=== PATIENT | male | born 1955 | race Caucasian/White ===

== ENCOUNTER 2019-11-02 01:54 | Observation (INO) | payer MEDICARE, MEDICAID ==
[~2019-11-02] VITALS: Ht 190.5 cm; Wt 195.4 kg
--- NOTE | 2019-11-02 02:40 | NUR ---
GRACIELA : [phone]
--- NOTE | 2019-11-02 02:50 | NUR ---
PT REPORTS THAT HE DIDN'T DRINK HIS KAYEXALATE. MADE AWARE. MD OKAYED PT TO HAVE WATER. EKG AND LABS ORDERED.
--- NOTE | 2019-11-02 03:25 | NUR ---
pt placed on quality assurance monitor body.
[2019-11-02 03:32] LABS: BASOPHILS # (AUTO) 0.1 X10'3 (0-0.2); BASOPHILS % (AUTO) 0.4 % (0-1); EOSINOPHILS # (AUTO) 0.2 X10'3 (0-0.9); EOSINOPHILS % (AUTO) 1.4 % (0-6); HEMATOCRIT 45.4 % (42.0-52.0); HEMOGLOBIN 14.6 g/dl (14.0-17.9); LYMPHOCYTES # (AUTO) 0.6 X10'3 (1.1-4.8); MEAN CORPUSCULAR HGB CONC 32.1 g/dL (33.0-36.5); MEAN CORPUSCULAR VOLUME 96.3 FL (78-98); MEAN PLATELET VOLUME 8.5 FL (7.4-10.4); MONOCYTES # (AUTO) 1.6 X10'3 (0-0.9); MONOCYTES % (AUTO) 10.1 % (2-12); NEUTROPHILS # (AUTO) 13.4 X10'3 (1.8-7.7); NEUTROPHILS % (AUTO) 84.1 % (42-75); PLATELET COUNT 252 X10'3 (140-440); RED BLOOD COUNT 4.72 X10'6 (4.70-6.10); RED CELL DISTRIBUTION WIDTH 15.7 % (11.5-14.5); WHITE BLOOD COUNT 15.9 X10'3 (4.5-11.0)
[2019-11-02] MEDS ORDERED: CARV-50 PO (03:34)
[2019-11-02] MEDS ORDERED: GABA600T13 PO (03:34)
[2019-11-02] MEDS ORDERED: MULT-1085 PO (03:34)
[2019-11-02] MEDS ORDERED: ASPI-1265 PO (03:34)
[2019-11-02] MEDS ORDERED: SPIR25TA5 PO (03:34)
[2019-11-02] MEDS ORDERED: FURO-150 PO (03:34)
[2019-11-02] MEDS ORDERED: IBUP-1984 PO (03:34)
[2019-11-02] MEDS ORDERED: LISI40TA4 PO (03:34)
[2019-11-02] MEDS ORDERED: GLYC1TAB23 PO ×2 (03:34)
[2019-11-02] MEDS ORDERED: ALBU8HFA PO (03:34)
[2019-11-02 03:35] LABS: ALBUMIN 3.2 G/DL (3.4-5.0); ANION GAP 1 (8-16); BLOOD UREA NITROGEN 32 MG/DL (7-18); BUN/CREATININE RATIO 22.9 (5.4-32.0); CHLORIDE 101 MMOL/L (99-107); GLUCOSE 147 MG/DL (70-104); POTASSIUM 5.1 MMOL/L (3.5-5.1); SODIUM 138 MMOL/L (135-145); TOTAL CARBON DIOXIDE 35.6 MMOL/L (24-32); eGFR 51 ML/MIN
[2019-11-02] MEDS ORDERED: dextrose ORAL solution 15 GM/59 ML bottle PO PRN ×2 (03:55)
[2019-11-02] MEDS ORDERED: ondansetron/PF 4mg/2ml inj IV PRN (03:55)
[2019-11-02] MEDS ORDERED: magnesium hydroxide 30ml (MOM) UD suspension PO PRN (03:55)
[2019-11-02] MEDS ORDERED: potassium CL 10mEq/100ml bag 100 ML IV PRN ×2 (03:55)
[2019-11-02] MEDS ORDERED: magnesium 2GM in 50ml NS 50 ML IV PRN (03:55)
[2019-11-02] MEDS ORDERED: magnesium Cl slow-release 64mg tablet PO PRN (03:55)
[2019-11-02] MEDS ORDERED: magnesium 4gm in 100ml NS 100 ML IV PRN (03:55)
[2019-11-02] MEDS ORDERED: glucagon, human recombinant 1mg kit SUBCUT PRN (03:55)
[2019-11-02] MEDS ORDERED: potassium Cl 20 mEq SR tablet PO PRN ×2 (03:55)
[2019-11-02] MEDS ORDERED: dextrose 50%-water 50ml dispensing syringe IV PRN ×2 (03:55)
[2019-11-02] MEDS ORDERED: MESSAGE TO PHARMACY PO ONE (03:55)
[2019-11-02] MEDS ORDERED: mag hydrox/Alum hydrox/simeth 30ml oral suspension PO PRN (03:55)
[2019-11-02] MEDS ORDERED: ATOR40TA PO (03:57)
[2019-11-02] MEDS ORDERED: DILT-88 PO (03:57)
[2019-11-02] MEDS ORDERED: LANTUS SQ (03:57)
[2019-11-02] MEDS ORDERED: albuterol 2.5 MG/3 ML nebule NEB PRN (04:30)
--- NOTE | 2019-11-02 04:50 | NUR ---
Patient in room ED 4. I have received report from Kassi CHINCHILLA and had the opportunity to ask questions and assume patient care.
--- NOTE | 2019-11-02 05:04 | NUR ---
pt to floor
[2019-11-02 05:05] VITALS: BP 132/77
[2019-11-02 07:01] LABS: D-DIMER 24.75 MG/L FEU (0-0.50)
--- NOTE | 2019-11-02 07:02 | NUR ---
Patient in room [facility]TH[facility] 4013. I have received report from RENÉE Del Valle and had the opportunity to ask questions and assume patient care.
[2019-11-02] MEDS: furosemide 40mg tablet PO SCH (07:56)
[2019-11-02] MEDS: spironolactone 25 MG tablet PO SCH (07:56)
[2019-11-02] MEDS: atorvastatin 20mg tablet PO SCH (07:56)
[2019-11-02] MEDS: diltiazem CD 120mg capsule (once-daily) PO SCH (07:56)
[2019-11-02] MEDS: carVEDilol 12.5mg tablet PO SCH ×2 (07:56→21:14)
[2019-11-02] MEDS: aspirin 81mg tab.chew PO SCH (07:56)
[2019-11-02] MEDS: gabapentin 300mg capsule PO SCH ×3 (07:56→21:14)
[2019-11-02] MEDS: lisinopril 10 MG tablet PO SCH (07:57)
[2019-11-02] MEDS: K and/or MAG REPLACEMENT MC SCH ×2 (08:00→20:00)
[2019-11-02] MEDS ORDERED: normal saline 1000ml 1,000 ML IV ONE (09:40)
[2019-11-02 10:00] VITALS: BP 144/72
[2019-11-02] MEDS ORDERED: iohexol 350MG/ML 100ml bottle IV ONE (10:48)
[2019-11-02] MEDS: normal saline 1000ml 1,000 ML IV SCH (11:51)
[2019-11-02] MEDS ORDERED: LISI-600 PO (12:05)
[2019-11-02] MEDS ORDERED: FURO40TA4 PO (12:05)
[2019-11-02] MEDS ORDERED: POTA10TA36 PO (12:05)
--- NOTE | 2019-11-02 15:23 | NUR ---
DM Consult: A1C 7.3 hx T2DM and afib refusing anti-coagulant per EMR. Written DM ed w/ RD contact information placed in pt chart. Addendum: 11/02/19 at [address] Amended: Links added.
[2019-11-02 18:00] VITALS: BP 154/96
--- NOTE | 2019-11-02 18:30 | NUR ---
Patient in room ORTHO 4013. I have received report from RENÉE CARUSO and had the opportunity to ask questions and assume patient care.
--- NOTE | 2019-11-02 18:35 | NUR ---
Problems reprioritized. Patient report given, questions answered & plan of care reviewed with RENÉE Boss.
[2019-11-02] MEDS: insulin glargine (Lantus) pen - multi-dose SQ SCH (21:21)
[2019-11-02 22:00] VITALS: BP 152/86
[2019-11-03] MEDS: normal saline 1000ml 1,000 ML IV SCH (05:40)
[2019-11-03 06:00] VITALS: BP 152/92
[2019-11-03 06:15] LABS: BASOPHILS # (AUTO) 0.1 X10'3 (0-0.2); BASOPHILS % (AUTO) 0.5 % (0-1); EOSINOPHILS # (AUTO) 0.2 X10'3 (0-0.9); EOSINOPHILS % (AUTO) 1.5 % (0-6); HEMATOCRIT 41.9 % (42.0-52.0); HEMOGLOBIN 13.4 g/dl (14.0-17.9); LYMPHOCYTES # (AUTO) 0.9 X10'3 (1.1-4.8); LYMPHOCYTES % (AUTO) 7.6 % (21-51); MEAN CORPUSCULAR HEMOGLOBIN 30.7 PG (27.0-31.0); MEAN CORPUSCULAR HGB CONC 32.1 g/dL (33.0-36.5); MEAN CORPUSCULAR VOLUME 95.6 FL (78-98); MEAN PLATELET VOLUME 8.6 FL (7.4-10.4); MONOCYTES # (AUTO) 1.2 X10'3 (0-0.9); MONOCYTES % (AUTO) 10.2 % (2-12); NEUTROPHILS # (AUTO) 9.4 X10'3 (1.8-7.7); NEUTROPHILS % (AUTO) 80.2 % (42-75); PLATELET COUNT 224 X10'3 (140-440); RED BLOOD COUNT 4.38 X10'6 (4.70-6.10); RED CELL DISTRIBUTION WIDTH 15.8 % (11.5-14.5); WHITE BLOOD COUNT 11.7 X10'3 (4.5-11.0)
[2019-11-03 06:17] LABS: ALANINE AMINOTRANSFERASE 20 U/L (12-78); ALBUMIN 2.9 G/DL (3.4-5.0); ALBUMIN/GLOBULIN RATIO 0.6 (1.1-1.5); ALKALINE PHOSPHATASE 89 IU/L (46-116); ANION GAP 7 (8-16); ASPARTATE AMINO TRANSFERASE 12 U/L (10-37); BILIRUBIN,TOTAL 0.6 MG/DL (0.1-1.0); BLOOD UREA NITROGEN 31 MG/DL (7-18); BUN/CREATININE RATIO 27.2 (5.4-32.0); CALCIUM 8.7 MG/DL (8.5-10.1); CHLORIDE 101 MMOL/L (99-107); CREATININE 1.14 MG/DL (0.60-1.10); GLUCOSE 144 MG/DL (70-104); MAGNESIUM 2.2 MG/DL (1.5-2.4); POTASSIUM 5.3 MMOL/L (3.5-5.1); SODIUM 139 MMOL/L (135-145); TOTAL CARBON DIOXIDE 31.3 MMOL/L (24-32); TOTAL PROTEIN 7.5 G/DL (6.4-8.2); eGFR 64 ML/MIN
--- NOTE | 2019-11-03 06:57 | NUR ---
Problems reprioritized. Patient report given, questions answered & plan of care reviewed with robson Thorpe.
[2019-11-03] MEDS: K and/or MAG REPLACEMENT MC SCH ×2 (08:00→20:00)
[2019-11-03] MEDS: spironolactone 25 MG tablet PO SCH (08:55)
[2019-11-03] MEDS: atorvastatin 20mg tablet PO SCH (08:55)
[2019-11-03] MEDS: aspirin 81mg tab.chew PO SCH (08:55)
[2019-11-03] MEDS: carVEDilol 12.5mg tablet PO SCH ×2 (08:55→20:48)
[2019-11-03] MEDS: diltiazem CD 120mg capsule (once-daily) PO SCH (08:55)
[2019-11-03] MEDS: lisinopril 10 MG tablet PO SCH (08:56)
[2019-11-03] MEDS: gabapentin 300mg capsule PO SCH ×3 (08:56→20:48)
[2019-11-03] MEDS: furosemide 40mg tablet PO SCH (08:56)
[2019-11-03 09:33] LABS: CLARITY,URINE CLEAR (Clear); COLOR,URINE YELLOW (Yellow); GLUCOSE, URINE NEGATIVE (Neg); KETONES,URINE NEGATIVE (Neg); LEUKOCYTE ESTERASE ,URINE NEGATIVE (Neg); NITRITES, URINE NEGATIVE (Neg); OCCULT BLOOD,URINE NEGATIVE (Neg); PROTEIN,URINE 100 mg/dl (Neg)
[2019-11-03 09:45] LABS: URINE AMPHETAMINE SCREEN NEGATIVE (Neg); URINE BARBITUATE SCREEN NEGATIVE (Neg); URINE BENZODIAZEPINES SCREEN NEGATIVE (Neg); URINE CANNABINOID SCREEN NEGATIVE (Neg); URINE COCAINE SCREEN NEGATIVE (Neg); URINE METHADONE SCREEN NEGATIVE (Neg); URINE OPIATE SCREEN NEGATIVE (Neg); URINE PHENCYCLIDINE SCREEN NEGATIVE (Neg)
[2019-11-03 09:48] LABS: BACTERIA,URINE FEW /HPF (Neg); RBC,URINE NONE SEEN /HPF (0-2); UA COLLECTION TYPE VOIDED; WBC,URINE 0-4 /HPF (0-4)
[2019-11-03 09:50] LABS: SQUAMOUS EPITHELIAL CELL,UR NONE SEEN /LPF (FEW)
[2019-11-03 11:00] VITALS: BP 139/101
--- NOTE | 2019-11-03 15:04 | NUR ---
DM Consult: Addressed; see prior LILA note. Addendum: 11/03/19 at [address] Amended: Links added.
--- NOTE | 2019-11-03 17:00 | NUR ---
Pt. is sleeping continuously throughout shift. Blood glucose checks done with no hypoglycemia present. Awaken to mild stimulus responds appropriately and returns to sleep.
[2019-11-03 18:00] VITALS: BP 141/83
[2019-11-03] MEDS: insulin Lispro (HumaLOG) vial - multi-dose SQ SCH (19:00)
[2019-11-03] MEDS: insulin glargine (Lantus) pen - multi-dose SQ SCH (20:50)
[2019-11-03 22:00] VITALS: BP 148/101
[2019-11-04 06:00] VITALS: BP 136/86
--- NOTE | 2019-11-04 06:24 | NUR ---
Problems reprioritized. Patient report given, questions answered & plan of care reviewed with RENÉE CASON.
--- NOTE | 2019-11-04 06:30 | NUR ---
received report from robsno haynes
[2019-11-04] MEDS: aspirin 81mg tab.chew PO SCH (07:06)
[2019-11-04] MEDS: diltiazem CD 120mg capsule (once-daily) PO SCH (07:06)
[2019-11-04] MEDS: carVEDilol 12.5mg tablet PO SCH (07:06)
[2019-11-04] MEDS: spironolactone 25 MG tablet PO SCH (07:06)
[2019-11-04] MEDS: atorvastatin 20mg tablet PO SCH (07:07)
[2019-11-04] MEDS: gabapentin 300mg capsule PO SCH ×2 (07:07→13:10)
[2019-11-04] MEDS: furosemide 40mg tablet PO SCH (07:07)
[2019-11-04] MEDS: lisinopril 10 MG tablet PO SCH (07:08)
[2019-11-04] MEDS: normal saline 1000ml 1,000 ML IV SCH (07:17)
[2019-11-04] MEDS: K and/or MAG REPLACEMENT MC SCH (07:19)
[2019-11-04] MEDS: insulin Lispro (HumaLOG) vial - multi-dose SQ SCH ×2 (08:59→13:31)
[2019-11-04 10:00] VITALS: BP 134/62
--- NOTE | 2019-11-04 13:10 | NUR ---
scanner not scanning meds into [facility], checked meds prior to admin
--- NOTE | 2019-11-04 14:48 | NUR ---
called [facility] at for pt transport to check on an eta at this time, transport was called by [facility] and set up at 1197 today the transport center told me that they are actively working on transport for pt and that transport will happen at 'sometime today'
--- NOTE | 2019-11-04 17:13 | NUR ---
pt d/c with instructions, understanding of instructions and w/all belongings in wheelchair accompanied by rose funez to go home and f/u w pcp and industrial relations analyst [facility] nurses changed dressings on bilateral legs and took pics
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
== END 2019-11-04 17:10 | disposition home or self-care (01) ==
LOC: ER 01:56 → ED HOLD 03:53 → ORTHO 4S 04:45
PROVIDERS: ADMIT Family Medicine; ATTEND Internal Medicine
DX: R55 Syncope and collapse (principal); I11.0 Hypertensive heart disease with heart failure; I50.9 Heart failure, unspecified; I48.91 Unspecified atrial fibrillation; I42.9 Cardiomyopathy, unspecified; J96.00 Acute respiratory failure, unspecified whether with hypoxia or hypercapnia; E11.9 Type 2 diabetes mellitus without complications; E66.01 Morbid (severe) obesity due to excess calories; E78.5 Hyperlipidemia, unspecified; G47.33 Obstructive sleep apnea (adult) (pediatric); Z79.82 Long term (current) use of aspirin; Z79.4 Long term (current) use of insulin; Z79.899 Other long term (current) drug therapy; Z88.1 Allergy status to other antibiotic agents; Z88.8 Allergy status to other drugs, medicaments and biological substances; W18.39XA Other fall on same level, initial encounter; Y93.89 Activity, other specified; Y92.009 Unspecified place in unspecified non-institutional (private) residence as the place of occurrence of the external cause; Z68.43 Body mass index [BMI] 50.0-59.9, adult
CPT/HCPCS: 36415; 70450; 71045; 71275; 76937; 80048; 80053; 80305; 81001; 82948; 83036; 83605; 83735; 83880; 84145; 84443; 84484; 85025; 85379; 87081; 93005; 93306; 93880; 93970; 96360; 96361; 97110; 97116; 97162; 97530; 99285; G0378; J1815; J7030; Q9967